=== PATIENT | male | born 1965 | race Caucasian/White ===

== ENCOUNTER 2018-11-30 13:05 | Emergency (ER) | payer MEDICAID ==
[~2018-11-30] VITALS: Ht 188 cm; Wt 98.0 kg
[2018-11-30] MEDS ORDERED: IBUPROFEN 600MG TABLET PO STA (13:23)
[2018-11-30] MEDS ORDERED: LORAZEPAM 1MG TABLET PO ONE (13:30)
[2018-11-30 13:57] LABS: BASOPHILS % 0.6 % (0.0-2.0); HEMATOCRIT. 47.3 % (42.0-52.0); HEMOGLOBIN. 16.3 g/dL (14.0-18.0); LYMPHOCYTES % 25.5 % (20.0-50.0); MEAN CORPUSCULAR HEMOGLOBIN 31.2 pg (28.0-32.0); MEAN CORPUSCULAR VOLUME 90.3 fL (80.0-94.0); MEAN PLATELET VOLUME 8.4 fl (7.4-10.4); MONOCYTES % 13.3 % (2.0-8.0); NEUTROPHILS % 53.6 % (40.0-76.0); PLATELET 236 x1000/uL (130-400); RED BLOOD CELL COUNT 5.24 mill/uL (4.7-6.1); RED CELL DISTRIBUTION WIDTH 13.4 % (11.6-14.6)
[2018-11-30 14:04] LABS: CHLORIDE 109 mEq/L (98-107)
[2018-11-30 14:08] LABS: ETHANOL BLOOD < 10 mg/dL
[2018-11-30 17:56] LABS: *AMPHETAMINES SCREEN URINE NEGATIVE (NEGATIVE); *BARBITURATES SCREEN URINE NEGATIVE (NEGATIVE); *BENZODIAZEPINES SCREEN URINE NEGATIVE (NEGATIVE); *COCAINE SCREEN URINE NEGATIVE (NEGATIVE); CANNABINOID URINE SCREEN NEGATIVE (NEGATIVE); METHADONE URINE SCREEN NEGATIVE (NEGATIVE); OPIATES URINE SCREEN NEGATIVE (NEGATIVE); PHENCYCLIDINE URINE SCREEN NEGATIVE (NEGATIVE)
[2018-11-30 20:59] VITALS: BP 150/96
== END 2018-11-30 20:59 | disposition home or self-care (01) ==
LOC: ER 13:05
DX: R07.89 Other chest pain (principal)
CPT/HCPCS: 36415; 71045; 80305; 80320; 83880; 84484; 93005; 99284; G0480